=== PATIENT | female | born 1980 ===

== ENCOUNTER 2023-11-27 06:43 | Outpatient (CLI) | payer OTHER ==
[2023-11-27 08:02] LABS: HEMATOCRIT 32.3 % (36.0-45.00); HEMOGLOBIN 10.6 g/dL (12.0-15.00); MEAN CORPUSCULAR HEMOGLOBIN 25.7 pg (27.00-32.0); PLATELET COUNT 343 K/uL (150-450); RED BLOOD COUNT 4.14 M/uL (4.00-6.00)
[2023-11-27 08:06] LABS: % SATURACION 8.6 % (15-50); ALBUMIN 3.2 gm/dL (3.4-5.0); BILIRUBIN TOTAL 0.27 mg/dL (0.3-1.2); CALCIUM 8.4 mg/dL (8.5-10.1); CREATININE SERUM 0.66 mg/dL (0.55-1.02); GFR 98.21; GLOBULINA 3.9 G/DL (2.4-3.5); POTASSIUM 3.57 mEq/L (3.5-5.1); T4 FREE 1.02 NG/ML (0.76-1.46); TOTAL PROTEIN 7.1 gm/dL (6.4-8.2); TSH 2.53 uIU/mL (0.358-3.74)
[2023-11-27 08:08] LABS: FERRITIN 4.2 NG/ML (8-252)
[2023-11-27 09:24] LABS: MANUAL PLATELET COUNT 55
[2023-11-27 09:28] LABS: PLATELET ESTIMATE NORMAL (NORMAL)
[2023-11-27 13:27] LABS: FOLIC ACID > 20.00 ng/ml (4.78-20)
[2023-11-28 16:07] LABS: ERYTHROPOIETIN 30.1 mIU/mL (2.6-18.5); hgb f 0 % (0.0-2.0); hgb s 0 % (0.0)
== END 2023-11-27 06:44 | disposition home or self-care (01) ==
LOC: LAB 06:43
PROVIDERS: ATTEND Internal Medicine Hematology & Oncology
DX: D50.8 Other iron deficiency anemias (principal); I10 Essential (primary) hypertension; D64.9 Anemia, unspecified; D55.0 Anemia due to glucose-6-phosphate dehydrogenase [G6PD] deficiency; D63.1 Anemia in chronic kidney disease; E03.8 Other specified hypothyroidism; E06.3 Autoimmune thyroiditis

== ENCOUNTER 2023-12-26 14:11 | Outpatient (CLI) | payer OTHER | END 2023-12-26 14:14 | disposition home or self-care (01) | LOC: SONOGRAMA 14:11 | PROVIDERS: ATTEND Pathology Anatomic Pathology & Clinical Pathology | DX: D34 Benign neoplasm of thyroid gland (principal); E07.89 Other specified disorders of thyroid; E04.2 Nontoxic multinodular goiter ==